=== PATIENT | female | born 1965 | race Caucasian/White ===

== ENCOUNTER 2017-06-18 14:53 | Emergency (ER) | payer OTHER ==
[2017-06-18 15:00] VITALS: TEMP 97.9
[2017-06-18] MEDS ORDERED: Albuterol-Ipratrop 3 mg / 0.5 (3 ml) UD INH STA (15:17)
[2017-06-18] MEDS ORDERED: Albuterol-Ipratrop 3 mg / 0.5 (3 ml) UD ONE (15:27)
[2017-06-18 16:20] VITALS: BP 155/90; PULSE 79; RESP 20; O2SAT 98
--- NOTE | 2017-06-18 16:53 | C.PDOC ---
History Of Present Illness 52 year old female presents to the emergency department with complaints of dry cough that has persisted for the past three months. She states that her chest pain is only upon coughing, and confirms post-tussive vomiting. patient denies fever, nausea, and sick contact. Chief Complaint (Nursing): Cough, Cold, Congestion History Per: Patient Onset/Duration Of Symptoms: Other (3 months) Associated Symptoms: Cough, Vomiting (post-tussive). denies: Fever, Nausea Recent travel outside of the [place]: No Past Medical History Reviewed: Historical Data, Nursing Documentation, Vital Signs Vital Signs: Last Vital Signs Temp 97.9 F 06/18/17 14:57 Pulse 79 06/18/17 16:19 Resp 20 06/18/17 16:19 BP 155/90 H 06/18/17 16:19 Pulse Ox 98 06/18/17 16:59 - Medical History PMH: HTN Denies: Chronic Kidney Disease Surgical History: Cholecystectomy Family History: States: No Known Family Hx - Social History Hx Alcohol Use: No Hx Substance Use: No - Immunization History Hx Tetanus Toxoid Vaccination: Yes Hx Influenza Vaccination: Yes Hx Pneumococcal Vaccination: No Review Of Systems Except As Marked, All Systems Reviewed And Found Negative. Constitutional: Negative for: Fever Cardiovascular: Positive for: Chest Pain (upon coughing) Respiratory: Positive for: Cough Gastrointestinal: Positive for: Vomiting. Negative for: Nausea Physical Exam - Physical Exam Oral Mucosa: Moist Throat: Normal Cardiovascular: Rhythm Regular Respiratory: Normal Breath Sounds Gastrointestinal/Abdominal: Normal Exam, Soft, No Tenderness Extremity: Normal ROM ED Course And Treatment O2 Sat by Pulse Oximetry: 98 (RA) Pulse Ox Interpretation: Normal Medical Decision Making Medical Decision Making: Plan: CXR Two-Views Duoneb 3ml INH Prednisone 60mg PO Progress: Upon receiving treatment in the emergency department, patient was no longer coughing and reported feeling better. Disposition - Disposition Referrals: [facility] [Outside] [facility] [Outside] Disposition: HOME/ ROUTINE Disposition Time: 14:30 Condition: GOOD Additional Instructions: Thank you for letting us take care of you today. The emergency medical care you received today was directed at your acute symptoms. If you were prescribed any medication, please fill it and take as directed. It may take several days for your symptoms to resolve. Return to the Emergency Department if your symptoms worsen, do not improve, or if you have any other problems. Please contact your doctor or call one of the physicians/clinics you have been referred to that are listed on the Patient Visit Information form that is included in your discharge packet. Bring any paperwork you were given at discharge with you along with any medications you are taking to your follow up visit. Our treatment cannot replace ongoing medical care by a primary care provider (PCP) outside of the emergency department. Thank you for allowing the [facility] team to be part of your care today. Follow up with the clinic in 2-3 days for re-evaluation and further management. Reed por dejarnos atenderlo hoy. La atencin mdica de emergencia que recibi hoy estaba dirigida a nadira sntomas agudos. Si le prescribieron algn medicamento, llnelo y tome segn las indicaciones. Nadira sntomas pueden tardar varios anderson en resolverse. Regrese al Departamento de Emergencia si nadira s ntomas empeoran, no mejoran o si tiene algn otro problema. Comunquese con wheeler mdico o llame a rohan de los mdicos / clnicas a los que jacobsen sido referido que figura en el formulario de Informacin de visita del paciente que se incluye en wheeler paquete de hayder. Traiga todos los documentos que recibi al momento del hayder junto con los medicamentos que est tomando en wheeler visita de seguimiento. Nuestro tratamiento no puede reemplazar la atencin mdica en curso por parte de un proveedor de atencin primaria (PCP) fuera del departamento de emergencias. Reed por permitir que el equipo de [facility] sea parte de wheeler cuidado hoy. Mary Carmen un seguimiento con la clnica en 2-3 anderson para gilmer nueva evaluacin y ms administracin. Prescriptions: Albuterol HFA [Ventolin HFA 90 mcg/actuation (8 g)] 2 puff IH [id number] PRN #1 puff PRN Reason: Wheezing predniSONE [Prednisone] 40 mg PO DAILY #10 tab Instructions: Cough in Adults Forms: Gen Discharge Inst Venezuelan, shoutr Connect (Venezuelan) Print Language: KOREAN - Clinical Impression Clinical Impression: Upper respiratory infection - Scribe Statement Mark Daniel Provider Attestation: All medical record entries made by the Scribe were at my direction and personally dictated by me. I have reviewed the chart and agree that the record accurately reflects my personal performance of the history, physical exam, medical decision making, and the department course for this patient. I have also personally directed, reviewed, and agree with the discharge instructions and disposition.
--- NOTE | 2017-06-18 18:26 | RAD ---
HISTORY: cough r/o infiltrate COMPARISON: No prior. TECHNIQUE: Chest PA and lateral FINDINGS: LUNGS: No active pulmonary disease. PLEURA: No significant pleural effusion identified. No pneumothorax apparent. CARDIOVASCULAR: Normal. OSSEOUS STRUCTURES: No significant abnormalities. VISUALIZED UPPER ABDOMEN: Normal. OTHER FINDINGS: None. IMPRESSION: No active disease.
== END 2017-06-18 16:20 | disposition home or self-care (01) ==
LOC: C.ER 14:53
DX: J06.9 Acute upper respiratory infection, unspecified (principal)

== ENCOUNTER 2018-02-28 18:51 | Emergency (ER) | payer OTHER ==
[2018-02-28 18:57] VITALS: BP 152/106; PULSE 87; RESP 20; TEMP 98; O2SAT 100
[2018-02-28] MEDS ORDERED: Erythromycin 0.5% Ophth Oint 1 APPLIC/3.5 G OS STA (19:10)
--- NOTE | 2018-02-28 19:20 | C.PDOC ---
History Of Present Illness Patient complains of left eye redness, irritation, and eyelid swelling for the past 3 days. She states she applied over the counter drops today which made it worse and now she has mild headache and pain to the left side. She denies any vision changes, eye discharge, foreign body sensation, or injury. Time Seen by Provider: 02/28/18 19:03 Chief Complaint (Nursing): Eye Problem History Per: Patient History/Exam Limitations: no limitations Onset/Duration Of Symptoms: Days (3) Current Symptoms Are (Timing): Still Present Injury To Eye?: No Quality: Other (Irritation) Wears Contact Lens?: No Associated Symptoms: Swelling (Left eyelid), Other (Left eye redness). denies: Decreased Vision, FB Sensation, Discharge From Eye Past Medical History Reviewed: Historical Data, Nursing Documentation, Vital Signs Vital Signs: Last Vital Signs Temp 98 F 02/28/18 18:53 Pulse 87 02/28/18 18:53 Resp 20 02/28/18 18:53 BP 152/106 H 02/28/18 18:53 Pulse Ox 100 02/28/18 18:53 - Medical History PMH: HTN Surgical History: Cholecystectomy Family History: States: No Known Family Hx - Social History Hx Alcohol Use: No Hx Substance Use: No - Immunization History Hx Tetanus Toxoid Vaccination: Yes Hx Influenza Vaccination: Yes Hx Pneumococcal Vaccination: No Review Of Systems Constitutional: Negative for: Fever Eyes: Positive for: Conjunctivae Inflammation, Eyelid Inflammation, Redness. Negative for: Vision Change Gastrointestinal: Negative for: Nausea, Vomiting Musculoskeletal: Negative for: Neck Pain Neurological: Positive for: Headache. Negative for: Weakness, Numbness, Altered Mental Status, Dizziness Physical Exam - Physical Exam Appears: Non-toxic Skin: Normal Color, Warm, Dry Head: Atraumatic, Normacephalic Eye(s): bilateral: PERRL, EOMI, right: Normal Inspection, left: Other (diffuse conjunctival and scleral injection, mild upper eyelid inflammation, upper eyelid lateral margin with small nodule, no discharge, normal lashes) Ear(s): Bilateral: Normal Nose: Normal Oral Mucosa: Moist Neck: Normal, No Midline Cervical Tenderness, No Paracervical Tenderness, Supple ED Course And Treatment O2 Sat by Pulse Oximetry: 100 (Room air) Pulse Ox Interpretation: Normal Medical Decision Making Medical Decision Making: Patient treated with erythromycin ointment. Advise to apply ointment and warm compress to affected eye. Can follow up with optho. Disposition Counseled Patient/Family Regarding: Diagnosis, Need For Followup - Disposition Referrals: Alejandro Santoro [Staff Provider] - Disposition: HOME/ ROUTINE Disposition Time: 19:18 Condition: STABLE Additional Instructions: aplicar ungento para los ojos 2-3 veces al da seguimiento con oculista en gilmer semana Instructions: Zhang (Horde[employer]) Print Language: BURUNDIAN - POA Present On Arrival: None - Clinical Impression Clinical Impression: Freida Holcomb - PA / STABLE HAND / Resident Statement MD/DO has reviewed & agrees with the documentation as recorded. - Scribe Statement The provider has reviewed the documentation as recorded by the Scribcarmina Sher All medical record entries made by the Scribe were at my direction and personally dictated by me. I have reviewed the chart and agree that the record accurately reflects my personal performance of the history, physical exam, medical decision making, and the department course for this patient. I have also personally directed, reviewed, and agree with the discharge instructions and disposition.
[2018-02-28] MEDS ORDERED: Erythromycin 0.5% Ophth Oint 1 APPLIC/3.5 G ONE (19:21)
== END 2018-02-28 19:38 | disposition home or self-care (01) ==
LOC: C.ER 18:51
DX: H00.014 Hordeolum externum left upper eyelid (principal); H20.9 Unspecified iridocyclitis; I10 Essential (primary) hypertension

== ENCOUNTER 2018-03-19 09:08 | Outpatient (CLI) | payer OTHER | END 2018-03-19 09:09 | disposition home or self-care (01) | LOC: C.LAB 09:08 | DX: H15.003 Unspecified scleritis, bilateral (principal) ==